=== PATIENT | male | born 1975 | race Caucasian/White ===

== ENCOUNTER → 2016-11-25 | Day surgery (SDC) | payer OTHER ==
[~2016-11-25] MED LIST: CIPRO250 MG PO; FLAGYL PO; LORTAB 5/500 TA1 TA1 PO; MOTRIN600 MG PO; NORVASC
--- NOTE | ~2016-11-25 | OR ---
Unit #: [id number] #: [id number] Patient: JOHN CRESPO [id number] [address] [address] [id number] O MR#: [id number] NAME: JOHN CRESPO ROOM: Date of Procedure: 11/25/2016 Admission Date: 11/25/2016 Surgeon: Delano Leung M.D. : 1975 Attending Physician: Delano Leung M.D. Referring Physician: Delano Leung M.D. OPERATIVE REPORT PROCEDURES PERFORMED Colonoscopy with biopsies. INDICATIONS FOR PROCEDURE Left lower quadrant pain, history of diverticulitis about 8 weeks ago. MEDICATIONS Monitored anesthesia. POSTOPERATIVE FINDINGS 1. Significant inflammation in the sigmoid colon from 30 to 40 cm. Biopsies taken. 2. Rest of the colon exam to cecum and terminal ileum was normal. 3. Internal hemorrhoids. PLAN Follow up on pathology report. We will give a course of Jude for now. DESCRIPTION OF PROCEDURE The patient was explained of the procedure, risks, and benefits along with risks and benefits of anesthesia. He was brought to the endoscopy room. Propofol anesthesia was given. Rectal exam was done, which was normal. Colonoscope was lubricated, passed up the rectum, advanced under direct vision all the way to the cecum. Cecum was identified by ileocecal valve and appendiceal orifice. I then started to pull the scope out carefully looking. Findings have been described above. Sigmoid colon biopsies were taken. I retroflexed in the rectum, small hemorrhoids seen. Scope was gently pulled out. He tolerated it well. Dictated by... Jim Spence/eddi TD: 11/25/2016 16:44 JOB #: [id number] Unit #: [id number] #: [id number] Patient: JOHN CRESPO OPERATIVE REPORT Page 1 of 1 X Delano Leung MD PROCEDURE OPERATIVE NOTE
== END | disposition home or self-care (01) ==
LOC: COPS 06:16
DX: K52.9 Noninfective gastroenteritis and colitis, unspecified (principal); K64.8 Other hemorrhoids; Z79.899 Other long term (current) drug therapy; Z98.890 Other specified postprocedural states
CPT/HCPCS: 88305; J2250; J2405